=== PATIENT | male | born 1985 | race Caucasian/White ===

== ENCOUNTER → 2018-08-23 | Outpatient (CLI) | payer OTHER ==
--- NOTE | 2018-08-24 13:10 | RADIOLOGY REPORT (SQ) ---
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 RADIONUCLIDE AND DOSE: 10 mCi F18 FDG The route of agent administration: Intravenous FASTING BLOOD SUGAR: 89 mg/dl CONTRAST TYPE AND DOSE: No CT contrast given. TECHNIQUE: Blood glucose level was verified. Above dose of FDG was injected intravenously. 2-D seg mented attenuation correction images were obtained from the base of the skull to the midthighs. Nonc ontrast CT images were obtained for attenuation correction and fusion with emission images. CT image s were performed without oral or intravenous contrast and are not sensitive for parenchymal lesions. A series of overlapping emission PET images were obtained. Images reviewed and manipulated at [facility] work station by the radiologist. Images stored on PACS. LIMITATIONS: None. FINDINGS: HEAD AND NECK: No areas of abnormal metabolic activity in the soft tissues of the head and neck. CHEST: Scattered punctate calcified granulomas. Heavily calcified mediastinal, hilar, and subcarinal lymph nodes. Enlarged lymph nodes in the superior mediastinum on the left adjacent to the aortic ar ch without abnormal activity. 2.2 x 2.5 cm lymph node (image 76) with mean SUV 1.5. 1.5 x 2.5 cm ly mph node (Image 82) with mean SUV 1.04. No areas of abnormal metabolic activity in the chest. ABDOMEN AND PELVIS: Extensive enlarged lymph nodes and conglomerated lymph nodes in the retroperitone um with no abnormal activity. 2.0 x 2.3 cm lymph node in the upper abdomen (image 131) with mean SUV 1.28. 1.1 x 2.0 cm right retrocrural lymph node (image 131) with mean SUV 1.34. Very large soft ti ssue mass/ conglomeration of lymph nodes in the upper retroperitoneum with total measurement approxim ately 3.4 x 10.2 cm. Mean SUV 1.59. 2.5 x 3.1 cm lymph node between the left kidney and inferior ve na cava (image 163) with mean SUV 1.64. 2.6 x 3.9 cm left retroperitoneal lymph node near the iliac bifurcation (image 179) with mean SUV 1.39. No areas of abnormal metabolic activity in the abdomen o r pelvis. Expected physiologic activity is present in the genitourinary system and bowel. PROXIMAL LOWER EXTREMITIES: No areas of abnormal metabolic activity in the soft tissues of the lower extremities. BONES: There are several small punctate sclerotic lesions, particularly in the lower lumbar vertebrae , pelvis, and hips. No abnormal metabolic activity in the visualized skeleton. ADDITIONAL CT FINDINGS: No additional significant findings on the noncontrast CT images. OTHER: No other significant findings. Background blood pool activity mean SUV 1.47. Background live r activity mean SUV 2.26. IMPRESSION: 1. EXTENSIVE MEDIASTINAL ADENOPATHY AND RETROPERITONEAL ADENOPATHY. THE LYMPH NODES ARE NOT HYPERMET ABOLIC AND MEAN SUV VALUES MEASURE BETWEEN 1.04 AND 1.64, SIMILAR TO BACKGROUND BLOOD POOL ACTIVITY A ND LESS THAN BACKGROUND SOFT TISSUE ACTIVITY. PRESUMABLY THESE FINDINGS ARE DUE TO PREVIOUSLY TREATE D MALIGNANCY. 2. SEVERAL SMALL PUNCTATE SCLEROTIC LESIONS IN THE LOWER LUMBAR SPINE, PELVIS, AND HIPS. THESE ARE N OT HYPERMETABOLIC. THESE COULD ALSO REPRESENT AREAS OF PREVIOUSLY TREATED MALIGNANCY VERSUS MULTIPLE CORTICAL BONE ISLANDS. 3. NO OTHER SIGNIFICANT FINDINGS. NO PET-CT EVIDENCE OF CURRENTLY ACTIVE DISEASE. TECHNICAL DOCUMENTATION: JOB ID: [id number] [employer]- All Rights Reserved Reading location - IP/workstation name: [email or web address]
== END ==
LOC: RAD 20:05
PROVIDERS: ATTEND Clinical Nurse Specialist Adult Health
DX: R59.0 Localized enlarged lymph nodes (principal)
CPT/HCPCS: 78815; A9552

== ENCOUNTER 2019-11-06 16:17 | Emergency (ER) | payer OTHER ==
--- NOTE | 2019-11-06 16:30 | ER Document Report ---
ED Medical Screen (RME) - General Chief Complaint: Hand Injury Stated Complaint: HAND INJURY Time Seen by Provider: 11/06/19 16:29 Primary Care Provider: GWENDOLYN CAREY NP [Primary Care Provider] - Follow up as needed Information source: Patient Notes: This 34-year-old male presents to the emergency room today sustaining a laceration to his right third digit from the sheet-metal on a dryer I greeted and performed a rapid initial assessment of this patient. Comprehensive ED assessment and evaluation of the patient, analysis of test results and completion of the medical decision making process will be conducted by additional ED providers. TRAVEL OUTSIDE OF THE [place] IN LAST 30 DAYS: No Past Medical History - Immunizations Hx Diphtheria, Pertussis, Tetanus Vaccination: Yes Doctor's Discharge - Discharge Referrals: GWENDOLYN CAREY NP [Primary Care Provider] - Follow up as needed
[2019-11-06] MEDS ORDERED: LIDOCAINE 1% INJ-PF (10 MG/ML) 30 ML SDV INJ ONE (20:37)
[2019-11-06] MEDS ORDERED: CEPHALEXIN 500 MG CAPSULE PO ONE (20:39)
[2019-11-06] MEDS ORDERED: DIPH/PERTUSS(ACELL)/TETANUS VAC/PF 0.5 ML SYR (>=10YO) IM ONE (20:39)
--- NOTE | 2019-11-06 20:41 | ER Document Report ---
HPI - HPI Time Seen by Provider: 11/06/19 16:29 Pain Level: 3 Context: Patient is a 34-year-old male that comes emergency department for chief complaint of laceration to his right third digit. He states this was on a sheet metal on a dryer and it happened just prior to arrival. Patient is right- handed. Patient is not up-to-date on his tetanus, last tetanus was 20 years ago. Patient denies any other injuries, he denies any past medical history. Past Medical History - General Information source: Patient - Social History Smoking Status: Never Smoker Chew tobacco use (# tins/day): No Frequency of alcohol use: None Drug Abuse: Marijuana Lives with: Family Family History: None Patient has homicidal ideation: No Surgical Hx: Negative - Immunizations Immunizations up to date: No Hx Diphtheria, Pertussis, Tetanus Vaccination: Yes Vertical Provider Document - CONSTITUTIONAL General Appearance: WD/WN, No Apparent Distress - INFECTION CONTROL TRAVEL OUTSIDE OF THE [place] IN LAST 30 DAYS: No - HEENT HEENT: Atraumatic, Normocephalic - NECK Neck: Normal Inspection - RESPIRATORY Respiratory: Breath Sounds Normal, No Respiratory Distress - CARDIOVASCULAR Cardiovascular: Regular Rate, Regular Rhythm - GI/ABDOMEN Gastrointestinal: Abdomen Soft, Abdomen Non-Tender - BACK Back: Normal Inspection - MUSCULOSKELETAL/EXTREMETIES Musculoskeletal/Extremeties: MAEW, FROM, Tender - There is a 2 cm laceration that is horizontal, linear, partial-thickness, over the right third digit at the palmar aspect between the PIP and the DIP. Patient has full range of motion with normal strength against resistance in flexion and extension, normal capillary refill and sensation, wound is easily explored and there is no noted foreign body. No other signs of injury. - NEURO Level of Consciousness: Awake, Alert, Appropriate Motor/Sensory: No Motor Deficit, No Sensory Deficit - DERM Integumentary: Warm, Dry, No Rash Course - Re-evaluation Re-evalutation: Tetanus updated. Wound was slightly dirty and was cleaned thoroughly and irrigated, patient was placed on antibiotic prophylaxis because of this. X-ray was discussed but deferred. Wound was explored carefully and is easy to eval uate, no foreign body, no evidence of tendon, nerve, or large vessel injury. Discussed care, follow-up, return precautions. Patient states understanding and agreement. - Vital Signs Vital signs: Temp Pulse Resp BP Pulse Ox 98.4 F 57 L 18 139/105 H 99 11/06/19 19:30 11/06/19 19:30 11/06/19 19:30 11/06/19 19:30 11/06/19 19:30 Procedures - Laceration/Wound Repair right 3rd digit Wound length (cm): 2 Wound's Depth, Shape: Linear Laceration pre-procedure: Sterile PPE donned, Sterile drapes applied, Shur-Clens applied Anesthetic type: 1% Lidocaine Volume Anesthetic (mLs): 4 Wound explored: Clean, No foreign body removed Wound Repaired With: Sutures Suture Size/Type: 4:0, Nylon Number of Sutures: 5 Layer Closure?: No Post-procedure wound care: Sterile dressing applied Post-procedure NV exam normal: Yes Complications: No Discharge - Discharge Clinical Impression: Finger laceration Qualifiers: Encounter type: initial encounter Finger: middle finger Damage to nail status: without damage Foreign body presence: without foreign body Laterality: right Qualified Code(s): S61.212A - Laceration without foreign body of right middle finger without damage to nail, initial encounter Condition: Stable Disposition: HOME, SELF-CARE Additional Instructions: Sutures need to be removed in 1 week. Keep clean, clean with soap and water, dab dry, apply thin film topical antibiotic. Avoid scrubbing or soaking. Take oral antibiotic as prescribed. Take ibuprofen and Tylenol for pain if needed. Return for any signs of infection including developing pain, swelling, spreading redness, fever, or any other concerning or worsening symptoms. Prescriptions: Cephalexin Monohydrate [Keflex 500 mg Capsule] 500 mg PO TID 5 Days #15 capsule Referrals: GWENDOLYN CAREY NP [NO LOCAL MD] - Follow up as needed
[2019-11-06 22:21] VITALS: BP 143/83
== END 2019-11-06 21:54 | disposition home or self-care (01) ==
LOC: ER 16:17
PROC: 0HQFXZZ Repair Right Hand Skin, External Approach (ICD-10-PCS; principal; 2019-11-06)
DX: S61.212A Laceration without foreign body of right middle finger without damage to nail, initial encounter (principal); W45.8XXA Other foreign body or object entering through skin, initial encounter
CPT/HCPCS: 90471; 90715; 99282